=== PATIENT | female | born 1970 | race Caucasian/White ===

== ENCOUNTER 2019-07-13 12:54 | Emergency (ER) | payer SELFPAY ==
[2019-07-13 13:17] VITALS: TEMP 97.8
--- NOTE | 2019-07-13 13:57 | RAD ---
Study: Frontal and Lateral Radiographs of the Chest. Indication: cough, vomit Comparison: None. Impression: Mild left basilar atelectasis, otherwise lungs clear. Heart size normal. No acute osseous abnormality. Electronically signed by: Cuong Sullivan MD 07/13/2019 1:55 PM [facility]
[2019-07-13] MEDS ORDERED: SODIUM CHLORIDE 0.9% 1000ML 1,000 ML IVS ONE (16:18)
--- NOTE | 2019-07-13 16:26 | CT ---
EXAM: CT Abdomen and Pelvis With Intravenous Contrast CLINICAL HISTORY: gi bleed with oral contrast as well TECHNIQUE: Axial computed tomography images of the abdomen and pelvis with intravenous contrast. Sagittal and coronal reformatted images were created and reviewed. This CT exam was performed using one or more of the following dose reduction techniques: automated exposure control, adjustment of the mA and/or kV according to patient size, and/or use of iterative reconstruction technique. COMPARISON: No relevant prior studies available. FINDINGS: Lung bases: There are few scattered approximate 4 mm or smaller peripheral parenchymal opacities within the right lower lobe. ABDOMEN: Liver: Fatty liver. Gallbladder and bile ducts: Unremarkable. No calcified stones. No ductal dilation. Pancreas: Unremarkable. No mass. No ductal dilation. Spleen: Unremarkable. No splenomegaly. Adrenals: Unremarkable. No mass. Kidneys and ureters: Unremarkable. No solid mass. No hydronephrosis. Stomach and bowel: Oral contrast in the stomach, small bowel and right colon would obscure acute hemorrhage. In the unopacified colon, no hemorrhage is noted. No intestinal obstruction. No mucosal thickening. PELVIS: Appendix: The appendix appears normal. Bladder: Unremarkable. No mass. Reproductive: Hysterectomy. ABDOMEN and PELVIS: Intraperitoneal space: Unremarkable. No free air. No significant fluid collection. Bones/joints: No acute fracture. No dislocation. Soft tissues: Unremarkable. Vasculature: Unremarkable. No abdominal aortic aneurysm. Lymph nodes: Unremarkable. No enlarged lymph nodes. IMPRESSION: 1. Oral contrast in the stomach, small bowel and right colon would obscure acute hemorrhage. In the unopacified colon, no hemorrhage is noted. 2. Small nonspecific peripheral parenchymal densities in the right lower lobe are noted. Recommend CT chest for more complete evaluation. Electronically signed by: Negin Howard MD 07/13/2019 4:25 PM [facility]
[2019-07-13 17:05] VITALS: BP 132/67; O2SAT 97
[2019-07-13] MEDS ORDERED: AZITHROMYCIN 250 MG TAB PO ONE (17:36)
[2019-07-13] MEDS ORDERED: predniSONE 20 MG TAB PO ONE (17:36)
--- NOTE | 2019-07-13 17:39 | ED.PDOC ---
History of Present Illness - General Chief Complaint: General Stated Complaint: cough, throat burning, bloody stool Time Seen by Provider: 07/13/19 13:10 Source: patient Exam Limitations: no limitations - History of Present Illness Initial Comments: The patient is a 48-year-old female presenting to the emergency room secondary to several issues. The first is persistent hoarseness and burning in the back of her throat. The patient has had a viral upper respiratory tract infection for about the last 3 weeks. She has episodes of coughing very hard until she throws up. She is having significant reflux issues. Additionally for the last 2 months she has had a bowel movement with some blood in it almost every morning. No hemorrhoids. No blood thinners. She has been taking some Motrin for the viral upper respiratory tract infection. She does have moderate alcohol intake. No known history of any ulcers. No history of any blood transfusions or significant anemia in the past. This morning also after intercourse she had a small amount of vaginal bleeding. She has had a hysterectomy in the past. No vaginal bleeding prior to this morning. No fever. No shortness of breath. Timing/Duration: unsure Severity: moderate Improving Factors: nothing Worsening Factors: nothing Associated Symptoms: cough, malaise Allergies/Adverse Reactions: Allergies NO KNOWN ALLERGY Allergy (Verified 07/13/19 13:12) Home Medications: Ambulatory Orders Azithromycin 500 mg PO DAILY #5 tab 07/13/19 Famotidine 20 mg PO BID #60 tab 07/13/19 Review of Systems - Review of Systems Constitutional: States: no symptoms reported EENTM: States: nose congestion, throat pain Respiratory: States: cough Cardiology: States: no symptoms reported Gastrointestinal/Abdominal: States: abdominal pain - cramping only Genitourinary: States: no symptoms reported Musculoskeletal: States: no symptoms reported Skin: States: no symptoms reported Neurological: States: no symptoms reported Endocrine: States: no symptoms reported All other Systems: No Change from Baseline Past Medical History (General) - Patient Medical History Hx Seizures: Yes Hx Stroke: No Hx Asthma: No Hx Cardiac Disorders: No Hx Thyroid Disease: No Hx Diabetes: No Hx Renal Disease: No Surgical History: Hysterectomy - Vaccination History Hx Influenza Vaccination: No Hx Pneumococcal Vaccination: No - Social History Hx Tobacco Use: Yes Family Medical History - Family History Mother Family History: No Known Physical Exam - Physical Exam General Appearance: Alert, Anxious, No apparent distress Eye Exam: bilateral normal Ears, Nose, Throat: hearing grossly normal, normal pharynx, nasal congestion Neck: full range of motion, supple Respiratory: no respiratory distress, no accessory muscle use, other - still mild scattered rhonchi and the patient is hoarse Cardiovascular/Chest: normal peripheral pulses, regular rate, rhythm, no edema Peripheral Pulses: radial,right: 2+, radial,left: 2+ Gastrointestinal/Abdominal: non tender, soft Rectal Exam: normal rectal tone, other - pelvic exam shows a small right sided labial tear. Likely due to intercourse. Back Exam: no CVA tenderness, no vertebral tenderness Extremity: normal range of motion, non-tender, normal inspection, no pedal edema, normal capillary refill Neurologic: test analyst II-XII nml as tested, alert, normal mood/affect, oriented x 3 Skin Exam: normal color Comments: Vital Signs - 24 hr 07/13/19 07/13/19 07/13/19 13:13 14:00 15:00 Temperature 97.8 F Pulse Rate [ 90 88 82 right brachial] Respiratory 16 16 Rate Blood Pressure 142/99 129/84 125/96 [right brachial ] O2 Sat by Pulse 96 95 Oximetry 07/13/19 07/13/19 16:00 17:00 Temperature Pulse Rate [ 74 79 right brachial] Respiratory 16 16 Rate Blood Pressure 117/82 132/67 [right brachial ] O2 Sat by Pulse 99 97 Oximetry Progress - Progress Progress: 07/13/19 17:42 the patient is a 48-year-old female presenting secondary to several issues. The patient has residual laryngitis after previous viral infection with questionable small areas of superimposed infection in the right lower lobe. She is going to be placed on azithromycin for this. She is also being given one dose of oral prednisone for the laryngitis. For the reflux issues the patient will be written for famotidine twice daily. She can also pickling solution maker some liquid Maalox to help reduce symptoms for as needed use. For the small daily GI bleed, the source of this is uncertain. The CT scan did not delineate the source. She needs to get set up with her primary care doctor for a referral to GI to get endoscopies done. In the meantime I want her to do a strictly lactose-free and gluten-free diet. One of these sensitivities may be causing her GI bleed. Additionally she does need to reduce the alcohol intake. she also needs to avoid Motrin, Aleve or ibuprofen. Tylenol can be used for discomfort. The vaginal bleeding from this morning was due to a small labial tear which is hemostatic at this point. Again she needs to obtain and follow up with primary care doctor next week. Vital signs are stable. Hemoglobin is within normal limits. ER warnings are given for any worsening. lisa coker [id number] 07/13/19 17:45 - Results/Orders Results/Orders: CT scan of abdomen and pelvis with contrast shows no evidence of any definitive bleed. No evidence of any definitive abdominal mass. Small nodularity to the right lower lobe that may be the residual of a recent infection.see report for details. Chest x-rays shows no significant large pneumonia. Laboratory Results - last 24 hr 07/13/19 07/13/19 07/13/19 13:56 13:56 13:56 WBC 12.1 H RBC 4.60 Hgb 14.5 Hct 43.3 MCV 94.2 MCH 31.6 H MCHC 33.5 RDW 14.0 Plt Count 343 MPV 8.0 Absolute Neuts (auto) 8.50 H Absolute Lymphs (auto) 2.60 Absolute Monos (auto) 0.70 Absolute Eos (auto) 0.10 Absolute Basos (auto) 0.10 Neutrophils % 70.1 Lymphocytes % 21.7 Monocytes % 6.0 Eosinophils % 1.2 Basophils % 1.0 PT 9.3 INR 0.94 PTT (SP) 22.9 D-Dimer, Quantitative 1.15 H* Sodium 136 Potassium 4.0 Chloride 100 L Carbon Dioxide 22 Anion Gap 18.0 BUN 11 Creatinine 0.87 BUN/Creatinine Ratio 12.6 Random Glucose 114 H Serum Osmolality 272.2 L Lactic Acid Calcium 9.7 Magnesium 1.8 Total Bilirubin 0.7 AST 55 H ALT 50 Alkaline Phosphatase 79 Creatine Kinase 141 H CK-MB (CK-2) 2.3 CK-MB (CK-2) % Not Reportable Troponin I < 0.02 Serum Total Protein 7.4 Albumin 4.1 Globulin 3.3 Albumin/Globulin Ratio 1.2 Amylase 34 Lipase 29 TSH 2.65 Serum HCG, Qual Urine Color Urine Appearance Urine pH Ur Specific [place] Urine Protein Urine Glucose (UA) Urine Ketones Urine Blood Urine Nitrite Urine Bilirubin Urine Urobilinogen Ur Leukocyte Esterase Urine RBC Urine WBC Ur Epithelial Cells Urine Bacteria Urine Mucus 01/10/20 01/10/20 01/10/20 13:56 13:56 14:00 WBC RBC Hgb Hct MCV MCH MCHC RDW Plt Count MPV Absolute Neuts (auto) Absolute Lymphs (auto) Absolute Monos (auto) Absolute Eos (auto) Absolute Basos (auto) Neutrophils % Lymphocytes % Monocytes % Eosinophils % Basophils % PT INR PTT (SP) D-Dimer, Quantitative Sodium Potassium Chloride Carbon Dioxide Anion Gap BUN Creatinine BUN/Creatinine Ratio Random Glucose Serum Osmolality Lactic Acid 2.1 Calcium Magnesium Total Bilirubin AST ALT Alkaline Phosphatase Creatine Kinase CK-MB (CK-2) CK-MB (CK-2) % Troponin I Serum Total Protein Albumin Globulin Albumin/Globulin Ratio Amylase Lipase TSH Serum HCG, Qual Negative Urine Color Yellow Urine Appearance Clear Urine pH 6.0 Ur Specific [place] >= 1.030 Urine Protein Negative Urine Glucose (UA) Negative Urine Ketones Negative Urine Blood Trace-intact H Urine Nitrite Negative Urine Bilirubin Negative Urine Urobilinogen 0.2 Ur Leukocyte Esterase Negative Urine RBC 5-10 H Urine WBC 5-10 H Ur Epithelial Cells 3-5 Urine Bacteria Rare Urine Mucus Moderate Departure - Departure Clinical Impression: Laryngitis GI bleed Qualifiers: GI bleed type/associated pathology: unspecified gastrointestinal hemorrhage type Qualified Code(s): K92.2 - Gastrointestinal hemorrhage, unspecified Gastroesophageal reflux Qualifiers: Esophagitis presence: with esophagitis Qualified Code(s): K21.0 - Gastro- esophageal reflux disease with esophagitis Labial tear Qualifiers: Encounter type: initial encounter Qualified Code(s): S31.41XA - Laceration without foreign body of vagina and vulva, initial encounter Disposition: Discharge to Home or Self Care Condition: Fair Departure Forms: ED Discharge - Pt. Copy, Patient Portal Self Enrollment Instructions: Gastrointestinal Bleeding (DC), Acid Reflux (Gastroesophageal Reflux Disease), Adult (DC), Laryngitis (DC), Lactose Intolerance, Celiac Disease (DC), Lifestyle Changes to Manage Celiac Disease Diet: bland diet Activity: increase activity as tolerated Prescriptions: Azithromycin 500 mg PO DAILY #5 tab Famotidine 20 mg PO BID #60 tab Home Medications: Ambulatory Orders Azithromycin 500 mg PO DAILY #5 tab 07/13/19 Famotidine 20 mg PO BID #60 tab 07/13/19 Additional Instructions: the patient is a 48-year-old female presenting secondary to several issues. The patient has residual laryngitis after previous viral infection with questionable small areas of superimposed infection in the right lower lobe. She is going to be placed on azithromycin for this. She is also being given one dose of oral prednisone for the laryngitis. For the reflux issues the patient will be written for famotidine twice daily. She can also pickling solution maker some liquid Maalox to help reduce symptoms for as needed use. For the small daily GI bleed, the source of this is uncertain. The CT scan did not delineate the source. She needs to get set up with her primary care doctor for a referral to GI to get endoscopies done. In the meantime I want her to do a strictly lactose-free and gluten-free diet. One of these sensitivities may be causing her GI bleed. Additionally she does need to reduce the alcohol intake. she also needs to avoid Motrin, Aleve or ibuprofen. Tylenol can be used for discomfort. The vaginal bleeding from this morning was due to a small labial tear which is hemostatic at this point. Again she needs to obtain and follow up with primary care doctor next week. Vital signs are stable. Hemoglobin is within normal limits. ER warnings are given for any worsening.
== END 2019-07-13 18:02 | disposition home or self-care (01) ==
LOC: ER 12:54
DX: K92.1 Melena (principal); S31.41XA Laceration without foreign body of vagina and vulva, initial encounter; J04.0 Acute laryngitis; K21.0 Gastro-esophageal reflux disease with esophagitis; R05 Cough; Z87.891 Personal history of nicotine dependence; X58.XXXA Exposure to other specified factors, initial encounter; Y92.9 Unspecified place or not applicable
CPT/HCPCS: 36415; 71046; 74177; 80053; 81001; 82150; 82550; 82553; 83605; 83690; 83735; 84443; 84484; 84703; 85025; 85379; 85610; 85730; 87324; 87449; J7030; J7512; Q0144